=== PATIENT | female | born 1965 | race Caucasian/White ===

== ENCOUNTER 2016-05-29 16:12 | Emergency (ER) | payer BC ==
[~2016-05-29 16:12] MED LIST: MICA40TA; PERC5TAB8; VICO5TAB; ZOLO100T
[2016-05-29 19:08] LABS: CALCIUM OXALATE CRYSTALS SMALL
[2016-05-29 19:52] LABS: BASO # 0.1 K/mm3 (0.0-0.2); BASO % 0.8 % (0.0-1.0); EOS # 0.2 K/mm3 (0.0-0.50); EOS % 2.1 % (0.0-3.0); LARGE UNSTAINED CELL # 0.2 K/mm3 (0.0-0.4); LARGE UNSTAINED CELL % 1.8 % (0.0-4.0); LYMPH # 3.1 K/mm3 (1.5-4.5); MEAN CORPUSCULAR HEMOGLOBIN 32.2 pg (27.0-33.0); MEAN CORPUSCULAR HGB CONC 33.6 g/dl (32.0-36.5); MEAN CORPUSCULAR VOLUME 95.8 fl (80.0-96.0); MONO # 0.4 K/mm3 (0.0-0.8); MONO % 4.8 % (0.0-5.0); NEUTROPHILS # 4.7 K/mm3 (1.8-7.7); NEUTROPHILS % 54.5 % (36.0-66.0); PLATELET COUNT, AUTOMATED 258 k/mm3 (150-450); RED CELL DISTRIBUTION WIDTH 12.8 % (11.5-14.5); WHITE BLOOD COUNT 8.7 K/mm3 (4.0-10.0)
[2016-05-29 20:20] LABS: ALBUMIN 3.9 GM/DL (3.2-5.2); ALBUMIN/GLOBULIN RATIO 1.05 (1.00-1.93); ALKALINE PHOSPHATASE 107 U/L (45-117); ALT/SGPT 25 U/L (12-78); ANION GAP 6 MEQ/L (8-16); AST/SGOT 16 U/L (15-37); BILIRUBIN,DIRECT < 0.1 MG/DL (0.0-0.2); BILIRUBIN,TOTAL 0.3 MG/DL (0.2-1.0); BLOOD UREA NITROGEN 10 MG/DL (7-18); CALCIUM LEVEL 9.1 MG/DL (8.5-10.1); CARBON DIOXIDE LEVEL 32 MEQ/L (21-32); CHLORIDE LEVEL 106 MEQ/L (98-107); CREATININE FOR GFR 0.87 MG/DL (0.55-1.02); GLOMERULAR FILTRATION RATE > 60.0 (>51); GLUCOSE, FASTING 81 MG/DL (70-105); POTASSIUM SERUM 4.2 MEQ/L (3.5-5.1); SODIUM LEVEL 144 MEQ/L (136-145); TOTAL PROTEIN 7.6 GM/DL (6.4-8.2)
[2016-05-29] MEDS ORDERED: ISOVUE-370 76% 100ML VIAL (Q9967) As Ordered ONE (20:36)
--- NOTE | 2016-05-29 21:20 | REPUSA ---
CT of the abdomen and pelvis with contrast Clinical statement: Pain. Technique: Multiple axial CT images were obtained from the base of the lungs through the floor of the pelvis utilizing 5 mm axial slices after administration of oral and nonionic intravenous contrast. C oronal and sagittal reconstructions were also obtained. Comparison: 12/27/2013. Findings: Chest: The visualized lung bases are clear. Abdomen: The liver, spleen, pancreas, kidneys, gallbladder, and adrenal glands are unremarkable. The aorta is within normal limits. There is no evidence of abdominal lymphadenopathy or ascites. Pelvis: The bowel is unremarkable, with no obstructive or inflammatory changes. Mild sigmoid divertic ulosis is appreciated without evidence of diverticulitis. The appendix is normal. The urinary bladder is within normal limits. The other pelvic structures appear grossly intact. There is no evidence of pelvic lymphadenopathy or ascites. Bones: There are no suspicious osseous abnormalities seen. Impression: 1. No acute findings to explain the patient's pain. No significant change since the prior study.
--- NOTE | 2016-05-29 21:42 | EDDOCDS ---
Physician Documentation [facility] Name: Leilani Johns Age: 51 yrs Sex: Female : 1965 Arrival Date: 05/29/2016 Time: 16:12 Bed TR8 Private MD: Beata Junior Disposition: 05/29/16 21:25 Discharged to Home/Self Care. Impression: Right lower quadrant abdominal tenderness. - Condition is Stable. - Discharge Instructions: Abdominal Pain, Adult. - Prescriptions for ZOFRAN ODT 4 mg - dissolve 1 tablet by ORAL route 4 times per day As needed do not chew, do not swallow whole; 10 tablet. - Medication Reconciliation, Local Pharmacy Hours form. - Follow up: Beata Junior, ; When: Call to arrange an appointment; Reason: Recheck today's complaints, Continuance of care. - Problem is new. - Symptoms are unchanged. Historical: - Allergies: no known allergies; - Home Meds: 1. escitalopram oxalate 20 mg oral tab 1 tab once daily 2. aspirin 81 mg Oral chew 1 tab once daily 3. Vitamin C 500 mg Oral TbER daily 4. olmesartan 20 mg oral tab 1 tab once daily 5. sertraline 50 mg oral tab 1 tab once daily - PMHx: Hypertension; High Cholesterol; Depression; - PSHx: Lumpectomy- Right; Tonsillectomy; Hysterectomy; Knee surgery- Right; - Social history: Smoking status: Patient uses tobacco products, heavy tobacco smoker. No barriers to communication noted, The patient speaks fluent Kazakh, Speaks appropriately for age. - Family history: Not pertinent. - : The pt / caregiver states he / she is not on anticoagulants. Home medication list is obtained from the patient. - Exposure Risk Screening:: None identified. Vital Signs: 05/29 16:14 BP 151 / 83; Pulse 91; Resp 18 S; Temp 97.9(O); Pulse Ox 99% on R/A; Weight 89.36 kg / dd6 197.01 lbs (R); Height 5 ft. 0 in. (152.40 cm) (R); 16:14 Body Mass Index 38.47 (89.36 kg, 152.40 cm) dd6 MDM: 18:30 NS 0.9% 1000 ml IV at bolus once ordered. mo1 18:30 IV Saline Lock ordered. mo1 18:30 Undress patient appropriately for examination ordered. mo1 18:31 Basic Metabolic Profile Ordered. EDMS 18:31 CBC with Diff Ordered. EDMS 18:31 Lipase Ordered. EDMS 18:31 Liver Profile Ordered. EDMS 18:31 Urinalysis Ordered. EDMS 18:31 CT ABD & PELVIS: IV Contrast Only Ordered. EDMS 18:31 NOTHING BY MOUTH+DIET ordered. EDMS 19:03 Financial registration complete. zo 19:11 [facility] Payment Agreement was scanned into co[employer]banize and attached to record. zo 19:17 Urinalysis Reviewed. mo1 20:26 Basic Metabolic Profile Reviewed. mo1 20:26 CBC with Diff Reviewed. mo1 20:26 Lipase Reviewed. mo1 20:26 Liver Profile Reviewed. mo1 Administered Medications: 19:50 Drug: NS 0.9% 1000 ml Route: IV; Rate: bolus; Site: left antecubital; [facility] 21:41 Follow up: IV Status: Infusion discontinued; IV Intake: 700ml pml Signatures: Dispatcher MedHost EDVanessa Boone Hannah RN RN hs1 Lynsey Ricks RN RN pml Cristhian Levin PA PA mo1 Kamilla Snowden RN [facility] The chart was reviewed and I authenticate all verbal orders and agree with the evaluation and treatment provided.Attachments: 19:11 [facility] Payment Agreement zo MTDD
--- NOTE | 2016-05-29 21:43 | EDDOCDS ---
Nurse's Notes [facility] Name: Leilani Johns Age: 51 yrs Sex: Female : 1965 Arrival Date: 05/29/2016 Time: 16:12 Bed TR8 Private MD: Beata Junior Diagnosis: Right lower quadrant abdominal tenderness Presentation: 05/29 16:21 Presenting complaint: Patient states: abdominal pain since Sunday. PCP was seen today hs1 and was told by them to come here for further evaluation and CT scan to make sure not appendicitis. Sent here by Dr Junior. Risk factors: the patient reports no vaginal bleeding. Adult Sepsis Screening: The patient does not have new or worsening altered mentation. Patient's respiratory rate is less than 22. Systolic blood pressure is greater than 100. Patient has a qSOFA score of 0- Negative Sepsis Screen. Suicide/Homicide risk assessment- the patient denies having any suicidal and/or homicidal ideations and does not present with any other emotional, behavioral or mental health complaints. Status: Patient is not a environmental services specialist or dependent. Transition of care: patient was not received from another setting of care. 16:21 Acuity: LING Level 3 hs1 16:21 Method Of Arrival: Walkin/Carried/Asstd hs1 Triage Assessment: 16:27 General: Appears in no apparent distress, Behavior is appropriate for age, cooperative. hs1 Pain: Location: abdomen Pain currently is 5 out of 10 on a pain scale. Quality of pain is described as sharp. HIV screening NA for this visit Offered previously. Neurological: No deficits noted. GI: Denies nausea. Historical: - Allergies: no known allergies; - Home Meds: 1. escitalopram oxalate 20 mg oral tab 1 tab once daily 2. aspirin 81 mg Oral chew 1 tab once daily 3. Vitamin C 500 mg Oral TbER daily 4. olmesartan 20 mg oral tab 1 tab once daily 5. sertraline 50 mg oral tab 1 tab once daily - PMHx: Hypertension; High Cholesterol; Depression; - PSHx: Lumpectomy- Right; Tonsillectomy; Hysterectomy; Knee surgery- Right; - Social history: Smoking status: Patient uses tobacco products, heavy tobacco smoker. No barriers to communication noted, The patient speaks fluent Ukrainian, Speaks appropriately for age. - Family history: Not pertinent. - : The pt / caregiver states he / she is not on anticoagulants. Home medication list is obtained from the patient. - Exposure Risk Screening:: None identified. Screenin:51 Screening information is obtained from the patient. Fall risk: No risks identified. [facility] Assistance ADL's: requires no assistance with activities of daily living. Abuse/DV Screen: The patient / caregiver reports he/she is: not in a situation that causes fear, pain or injury. Nutritional screening: No deficits noted. Advance Directives: There is no active DNR order. home support is adequate. Assessment: 19:51 General: Appears in no apparent distress, comfortable, Behavior is appropriate for age, cjh cooperative, pleasant. Pain: Location: right lower quadrant Pain currently is 5 out of 10 on a pain scale. Neurological: Level of Consciousness is awake, alert, Oriented to person, place, time. Respiratory: Airway is patent Respiratory effort is even, unlabored, Respiratory pattern is regular, symmetrical. GI: Abdomen is non- distended Bowel sounds present X 4 quads. Abd is soft X 4 quads Abd is tender to palpation in right lower quadrant. Derm: Skin is pink, warm & dry. 20:53 General: Appears in no apparent distress, Behavior is cooperative, Had CTscan. rs3 tolerated well. abdominal pain 4/10. waiting for test results. . 21:40 General: Appears in no apparent distress, comfortable, Behavior is appropriate for age, pml cooperative. Pain: Location: right lower quadrant Pain currently is 4 out of 10 on a pain scale. Neurological: Level of Consciousness is awake, alert, Oriented to person, place, time. Cardiovascular: Capillary refill < 3 seconds. Respiratory: Airway is patent Respiratory effort is even, unlabored, Respiratory pattern is regular, symmetrical. GI: Abdomen is non- distended. Derm: Skin is pink, warm & dry. Vital Signs: 16:14 BP 151 / 83; Pulse 91; Resp 18 S; Temp 97.9(O); Pulse Ox 99% on R/A; Weight 89.36 kg dd6 (R); Height 5 ft. 0 in. (152.40 cm) (R); 16:14 Body Mass Index 38.47 (89.36 kg, 152.40 cm) dd6 Vitals: 16:14 Log In Time: May 29, 2016 at 16:12. dd6 ED Course: 16:13 Patient visited by Adam Roth PCA. dd6 16:13 Patient moved to Waiting dd6 16:14 Beata Junior DO is Private Physician. dd6 16:15 Patient moved to Pre RCE dd6 16:22 Triage Initiated hs1 17:37 Patient moved to Triage 3 ar3 18:07 Cristhian Levin PA is PHCP. mo1 18:07 Maame Cochran MD is Attending Physician. mo1 18:18 Patient visited by Cristhian Levin PA. mo1 18:35 Patient moved to I4 / M4 ar3 18:35 Urinalysis Sent. ar3 19:11 [facility] Payment Agreement was scanned into Toc[employer] and attached to record. zo 19:22 Patient visited by Liyah Sanders PCA. raquel 19:51 The patient / caregiver is instructed regarding the plan of care and ED course. Patient [facility] has correct armband on for positive identification. Placed in gown. Bed in low position. Call light in reach. Side rails up X 1. 19:51 Inserted saline lock: 20 gauge in right antecubital area and blood collected. The [facility] patient tolerated the procedure well. Labs drawn. (by ED staff). Sent per order to lab. 20:18 Patient visited by Em Abraham RN. rs3 20:53 Patient visited by Em Abraham RN. rs3 21:24 CT ABD & PELVIS: IV Contrast Only Returned. EDMS 21:25 Beata Junior DO is Referral Physician. mo1 21:36 Patient moved to TR8 pml 21:40 Discontinued lock intact, bleeding controlled, pressure dressing applied, No pml redness/swelling at site. No procedures done that require assistance. Administered Medications: 19:50 Drug: NS 0.9% 1000 ml Route: IV; Rate: bolus; Site: left antecubital; [facility] 21:41 Follow up: IV Status: Infusion discontinued; IV Intake: 700ml pml Intake: 21:41 IV: 700.00ml; Total: 700.00ml. pml Order Results: Lab Order: Basic Metabolic Profile; SPEC'M 05/29/16 19:34 Test: GLUCOSE, FASTING; Value: 81; Range: 70-105; Units: MG/DL; Status: F Test: BLOOD UREA NITROGEN; Value: 10; Range: 7-18; Units: MG/DL; Status: F Test: CREATININE FOR GFR; Value: 0.87; Range: 0.55-1.02; Units: MG/DL; Status: F Test: GLOMERULAR FILTRATION RATE; Value: > 60.0; Range: >51; Status: F Test: SODIUM LEVEL; Value: 144; Range: 136-145; Units: MEQ/L; Status: F Test: POTASSIUM SERUM; Value: 4.2; Range: 3.5-5.1; Units: MEQ/L; Status: F Test: CHLORIDE LEVEL; Value: 106; Range: 98-107; Units: MEQ/L; Status: F Test: CARBON DIOXIDE LEVEL; Value: 32; Range: 21-32; Units: MEQ/L; Status: F Test: ANION GAP; Value: 6; Range: 8-16; Abnormal: Below low normal; Units: MEQ/L; Status: F Test: CALCIUM LEVEL; Value: 9.1; Range: 8.5-10.1; Units: MG/DL; Status: F Test Note: ; Units are mL/min/1.73 m2 Chronic Kidney Disease Staging per NKF: Stage I & II GFR >=60 Normal to Mildly Decreased Stage III GFR 30-59 Moderately Decreased Stage IV GFR 15-29 Severely Decreased Stage V GFR <15 Very Little GFR Left ESRD GFR <15 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 Lab Order: CBC with Diff; SPEC'M 05/29/16 19:34 Test: WHITE BLOOD COUNT; Value: 8.7; Range: 4.0-10.0; Units: K/mm3; Status: F Test: RED BLOOD COUNT; Value: 4.48; Range: 4.00-5.40; Units: M/mm3; Status: F Test: HEMOGLOBIN; Value: 14.5; Range: 12.0-16.0; Units: g/dl; Status: F Test: HEMATOCRIT; Value: 43.0; Range: 36.0-47.0; Units: %; Status: F Test: MEAN CORPUSCULAR VOLUME; Value: 95.8; Range: 80.0-96.0; Units: fl; Status: F Test: MEAN CORPUSCULAR HEMOGLOBIN; Value: 32.2; Range: 27.0-33.0; Units: pg; Status: F Test: MEAN CORPUSCULAR HGB CONC; Value: 33.6; Range: 32.0-36.5; Units: g/dl; Status: F Test: RED CELL DISTRIBUTION WIDTH; Value: 12.8; Range: 11.5-14.5; Units: %; Status: F Test: PLATELET COUNT, AUTOMATED; Value: 258; Range: 150-450; Units: k/mm3; Status: F Test: NEUTROPHILS %; Value: 54.5; Range: 36.0-66.0; Units: %; Status: F Test: LYMPH %; Value: 36.0; Range: 24.0-44.0; Units: %; Status: F Test: MONO %; Value: 4.8; Range: 0.0-5.0; Units: %; Status: F Test: EOS %; Value: 2.1; Range: 0.0-3.0; Units: %; Status: F Test: BASO %; Value: 0.8; Range: 0.0-1.0; Units: %; Status: F Test: LARGE UNSTAINED CELL %; Value: 1.8; Range: 0.0-4.0; Units: %; Status: F Test: NEUTROPHILS #; Value: 4.7; Range: 1.8-7.7; Units: K/mm3; Status: F Test: LYMPH #; Value: 3.1; Range: 1.5-4.5; Units: K/mm3; Status: F Test: MONO #; Value: 0.4; Range: 0.0-0.8; Units: K/mm3; Status: F Test: EOS #; Value: 0.2; Range: 0.0-0.50; Units: K/mm3; Status: F Test: BASO #; Value: 0.1; Range: 0.0-0.2; Units: K/mm3; Status: F Test: LARGE UNSTAINED CELL #; Value: 0.2; Range: 0.0-0.4; Units: K/mm3; Status: F Lab Order: Lipase; SPEC'M 05/29/16 19:34 Test: LIPASE; Value: 151; Range: 73-393; Units: U/L; Status: F Lab Order: Liver Profile; SPEC'M 05/29/16 19:34 Test: AST/SGOT; Value: 16; Range: 15-37; Units: U/L; Status: F Test: ALT/SGPT; Value: 25; Range: 12-78; Units: U/L; Status: F Test: ALKALINE PHOSPHATASE; Value: 107; Range: 45-117; Units: U/L; Status: F Test: BILIRUBIN,TOTAL; Value: 0.3; Range: 0.2-1.0; Units: MG/DL; Status: F Test: BILIRUBIN,DIRECT; Value: < 0.1; Range: 0.0-0.2; Units: MG/DL; Status: F Test: TOTAL PROTEIN; Value: 7.6; Range: 6.4-8.2; Units: GM/DL; Status: F Test: ALBUMIN; Value: 3.9; Range: 3.2-5.2; Units: GM/DL; Status: F Test: ALBUMIN/GLOBULIN RATIO; Value: 1.05; Range: 1.00-1.93; Status: F Lab Order: Urinalysis; SPEC'M 05/29/16 18:35 Test: APPEARANCE, URINE; Value: HAZY; Range: CLEAR; Status: F Test: COLOR, URINE; Value: YELLOW; Range: YELLOW; Status: F Test: PH,URINE; Value: 6.0; Range: 5.0-9.0; Units: UNITS; Status: F Test: SPECIFIC GRAVITY URINE AUTO; Value: 1.021; Range: 1.002-1.035; Status: F Test: PROTEIN, URINE AUTO; Value: NEGATIVE; Range: NEGATIVE; Units: mg/dL; Status: F Test: GLUCOSE, URINE (UA) AUTO; Value: NEGATIVE; Range: NEGATIVE; Units: mg/dL; Status: F Test: KETONE, URINE AUTO; Value: NEGATIVE; Range: NEGATIVE; Units: mg/dL; Status: F Test: UROBILINOGEN, URINE AUTO; Value: 0.2; Range: 0.0-2.0; Units: mg/dL; Status: F Test: BILIRUBIN, URINE AUTO; Value: NEGATIVE; Range: NEGATIVE; Status: F Test: NITRITE, URINE AUTO; Value: NEGATIVE; Range: NEGATIVE; Status: F Test: LEUKOCYTE ESTERASE, URINE AUTO; Value: NEGATIVE; Range: NEGATIVE; Status: F Test: BLOOD, URINE BLOOD; Value: NEGATIVE; Range: NEGATIVE; Status: F Test: WBC, URINE AUTO; Value: 2; Range: 0-3; Units: /HPF; Status: F Test: RBC, URINE AUTO; Value: 2; Range: 0-3; Units: /HPF; Status: F Test: BACTERIA, URINE AUTO; Value: 1+; Range: NEGATIVE; Abnormal: Above high normal; Status: F Test: SQUAMOUS EPITHELIAL CELL UR AU; Value: 5; Range: 0-6; Units: /HPF; Status: F Test: MUCUS, URINE; Value: SMALL; Range: NEGATIVE; Status: F Test: HYALINE CAST, URINE AUTO; Value: 0; Range: 0-1; Units: /LPF; Status: F Test: CALCIUM OXALATE CRYSTALS; Value: SMALL; Range: NONE; Status: F Radiology Order: CT ABD & PELVIS: IV Contrast Only Test: CT ABD & PELVIS: IV Contrast Only REASON FOR EXAMINATION: Appendicitis; ; CT of the abdomen and pelvis with contrast; Clinical statement: Pain.; Technique: Multiple axial CT images were obtained from the base of the lungs through the floor of the; pelvis utilizing 5 mm axial slices after administration of oral and nonionic intravenous contrast. C; oronal and sagittal reconstructions were also obtained.; Comparison: 12/27/2013.; Findings:; Chest: The visualized lung bases are clear.; Abdomen: The liver, spleen, pancreas, kidneys, gallbladder, and adrenal glands are unremarkable. The; aorta is within normal limits. There is no evidence of abdominal lymphadenopathy or ascites.; Pelvis: The bowel is unremarkable, with no obstructive or inflammatory changes. Mild sigmoid divertic; ulosis is appreciated without evidence of diverticulitis. The appendix is normal. The urinary bladder; is within normal limits. The other pelvic structures appear grossly intact. There is no evidence of; pelvic lymphadenopathy or ascites.; Bones: There are no suspicious osseous abnormalities seen.; Impression:; 1. No acute findings to explain the patient's pain. No significant change since the prior study.; ; Outcome: 21:25 Discharge ordered by Provider. mo1 21:40 Discharge Assessment: Patient awake, alert and oriented x 3. No cognitive and/or pml functional deficits noted. Patient verbalized understanding of disposition instructions. patient administered narcotics - no. The following High Risk Discharge criteria are identified: None. Discharged to home ambulatory. Condition: good Condition: stable. Discharge instructions given to patient, Instructed on discharge instructions, follow up and referral plans. medication usage, Demonstrated understanding of instructions, medications, Pt was receptive of discharge instructions/ teaching. Prescriptions given X 1. CT Study completed. Property sent home with patient. 21:42 Patient left the ED. pml Signatures: Dispatcher MedHost EDMS Vanessa Velez Daniell, POLISHER APPRENTICE POLISHER APPRENTICE dd6 Em AbrahamRN RN rs3 Joan Rouse, POLISHER APPRENTICE POLISHER APPRENTICE ar3 Mercy Quiñonez RN RN hs1 Liyah Sanders, POLISHER APPRENTICE POLISHER APPRENTICE raquel Lynsey RicksRN RN pml Kamilla SnowdenRN RN [facility] Cristhian Levin PA PA mo1 RAYNA
--- NOTE | 2016-05-31 22:42 | EDDOCDS ---
Physician Documentation [facility] Name: Leilani Johns Age: 51 yrs Sex: Female : 1965 Arrival Date: 05/29/2016 Time: 16:12 Bed TR8 Private MD: Beata Junior Disposition: 05/29/16 21:25 Discharged to Home/Self Care. Impression: Right lower quadrant abdominal tenderness. - Condition is Stable. - Discharge Instructions: Abdominal Pain, Adult. - Prescriptions for ZOFRAN ODT 4 mg - dissolve 1 tablet by ORAL route 4 times per day As needed do not chew, do not swallow whole; 10 tablet. - Medication Reconciliation, Local Pharmacy Hours form. - Follow up: Beata Junior, ; When: Call to arrange an appointment; Reason: Recheck today's complaints, Continuance of care. - Problem is new. - Symptoms are unchanged. Historical: - Allergies: no known allergies; - Home Meds: 1. escitalopram oxalate 20 mg oral tab 1 tab once daily 2. aspirin 81 mg Oral chew 1 tab once daily 3. Vitamin C 500 mg Oral TbER daily 4. olmesartan 20 mg oral tab 1 tab once daily 5. sertraline 50 mg oral tab 1 tab once daily - PMHx: Hypertension; High Cholesterol; Depression; - PSHx: Lumpectomy- Right; Tonsillectomy; Hysterectomy; Knee surgery- Right; - Social history: Smoking status: Patient uses tobacco products, heavy tobacco smoker. No barriers to communication noted, The patient speaks fluent Yoruba, Speaks appropriately for age. - Family history: Not pertinent. - : The pt / caregiver states he / she is not on anticoagulants. Home medication list is obtained from the patient. - Exposure Risk Screening:: None identified. Vital Signs: 05/29 16:14 BP 151 / 83; Pulse 91; Resp 18 S; Temp 97.9(O); Pulse Ox 99% on R/A; Weight 89.36 kg / dd6 197.01 lbs (R); Height 5 ft. 0 in. (152.40 cm) (R); 16:14 Body Mass Index 38.47 (89.36 kg, 152.40 cm) dd6 MDM: 18:30 NS 0.9% 1000 ml IV at bolus once ordered. mo1 18:30 IV Saline Lock ordered. mo1 18:30 Undress patient appropriately for examination ordered. mo1 18:31 Basic Metabolic Profile Ordered. EDMS 18:31 CBC with Diff Ordered. EDMS 18:31 Lipase Ordered. EDMS 18:31 Liver Profile Ordered. EDMS 18:31 Urinalysis Ordered. EDMS 18:31 CT ABD & PELVIS: IV Contrast Only Ordered. EDMS 18:31 NOTHING BY MOUTH+DIET ordered. EDMS 19:03 Financial registration complete. zo 19:11 [facility] Payment Agreement was scanned into [employer] and attached to record. zo 19:17 Urinalysis Reviewed. mo1 20:26 Basic Metabolic Profile Reviewed. mo1 20:26 CBC with Diff Reviewed. mo1 20:26 Lipase Reviewed. mo1 20:26 Liver Profile Reviewed. mo1 05/30 12:56 T-Sheet-- Draft Copy was scanned into Veve[employer] and attached to record. gb 12:56 Radiology Report was scanned into Veve[employer] and attached to record. gb Administered Medications: 05/29 19:50 Drug: NS 0.9% 1000 ml Route: IV; Rate: bolus; Site: left antecubital; [facility] 21:41 Follow up: IV Status: Infusion discontinued; IV Intake: 700ml pml Signatures: Dispatcher MedHost EDKY Jamila Savage, Rai Reg gb Vanessa Velez zo Mercy Quiñonez, WHITLEY RN hs1 Lynsey Ricks RN RN pml Cristhian Levin PA PA mo1 Kamilla Snowden RN [facility] The chart was reviewed and I authenticate all verbal orders and agree with the evaluation and treatment provided.Attachments: 19:11 [facility] Payment Agreement zo 05/30 12:56 T-Sheet-- Draft Copy gb Chart Complete MTDD
--- NOTE | 2016-05-31 22:42 | EDDOCDS ---
Physician Documentation [facility] Name: Leilani Johns Age: 51 yrs Sex: Female : 1965 Arrival Date: 05/29/2016 Time: 16:12 Bed TR8 Private MD: Beata Junior Disposition: 05/29/16 21:25 Discharged to Home/Self Care. Impression: Right lower quadrant abdominal tenderness. - Condition is Stable. - Discharge Instructions: Abdominal Pain, Adult. - Prescriptions for ZOFRAN ODT 4 mg - dissolve 1 tablet by ORAL route 4 times per day As needed do not chew, do not swallow whole; 10 tablet. - Medication Reconciliation, Local Pharmacy Hours form. - Follow up: Beata Junior, ; When: Call to arrange an appointment; Reason: Recheck today's complaints, Continuance of care. - Problem is new. - Symptoms are unchanged. Historical: - Allergies: no known allergies; - Home Meds: 1. escitalopram oxalate 20 mg oral tab 1 tab once daily 2. aspirin 81 mg Oral chew 1 tab once daily 3. Vitamin C 500 mg Oral TbER daily 4. olmesartan 20 mg oral tab 1 tab once daily 5. sertraline 50 mg oral tab 1 tab once daily - PMHx: Hypertension; High Cholesterol; Depression; - PSHx: Lumpectomy- Right; Tonsillectomy; Hysterectomy; Knee surgery- Right; - Social history: Smoking status: Patient uses tobacco products, heavy tobacco smoker. No barriers to communication noted, The patient speaks fluent Vietnamese, Speaks appropriately for age. - Family history: Not pertinent. - : The pt / caregiver states he / she is not on anticoagulants. Home medication list is obtained from the patient. - Exposure Risk Screening:: None identified. Vital Signs: 05/29 16:14 BP 151 / 83; Pulse 91; Resp 18 S; Temp 97.9(O); Pulse Ox 99% on R/A; Weight 89.36 kg / dd6 197.01 lbs (R); Height 5 ft. 0 in. (152.40 cm) (R); 16:14 Body Mass Index 38.47 (89.36 kg, 152.40 cm) dd6 MDM: 18:30 NS 0.9% 1000 ml IV at bolus once ordered. mo1 18:30 IV Saline Lock ordered. mo1 18:30 Undress patient appropriately for examination ordered. mo1 18:31 Basic Metabolic Profile Ordered. EDMS 18:31 CBC with Diff Ordered. EDMS 18:31 Lipase Ordered. EDMS 18:31 Liver Profile Ordered. EDMS 18:31 Urinalysis Ordered. EDMS 18:31 CT ABD & PELVIS: IV Contrast Only Ordered. EDMS 18:31 NOTHING BY MOUTH+DIET ordered. EDMS 19:03 Financial registration complete. zo 19:11 [facility] Payment Agreement was scanned into [employer] and attached to record. zo 19:17 Urinalysis Reviewed. mo1 20:26 Basic Metabolic Profile Reviewed. mo1 20:26 CBC with Diff Reviewed. mo1 20:26 Lipase Reviewed. mo1 20:26 Liver Profile Reviewed. mo1 05/30 12:56 T-Sheet-- Draft Copy was scanned into [employer] and attached to record. gb 12:56 Radiology Report was scanned into [employer] and attached to record. gb Administered Medications: 05/29 19:50 Drug: NS 0.9% 1000 ml Route: IV; Rate: bolus; Site: left antecubital; [facility] 21:41 Follow up: IV Status: Infusion discontinued; IV Intake: 700ml pml Signatures: Dispatcher MedHost EDKS Jamila Savage, Rai Reg gb Vanessa Velez zo Mercy Quiñonez, WHITLEY RN hs1 Lynsey Ricks RN RN pml Cristhian Levin PA PA mo1 Kamilla Snowden RN [facility] The chart was reviewed and I authenticate all verbal orders and agree with the evaluation and treatment provided.Attachments: 19:11 [facility] Payment Agreement zo 05/30 12:56 T-Sheet-- Draft Copy gb Chart Complete MTDD
--- NOTE | 2016-05-31 22:43 | EDDOCDS ---
Nurse's Notes [facility] Name: Leilani Johns Age: 51 yrs Sex: Female : 1965 Arrival Date: 05/29/2016 Time: 16:12 Bed TR8 Private MD: Beata Junior Diagnosis: Right lower quadrant abdominal tenderness Presentation: 05/29 16:21 Presenting complaint: Patient states: abdominal pain since Sunday. PCP was seen today hs1 and was told by them to come here for further evaluation and CT scan to make sure not appendicitis. Sent here by Dr Junior. Risk factors: the patient reports no vaginal bleeding. Adult Sepsis Screening: The patient does not have new or worsening altered mentation. Patient's respiratory rate is less than 22. Systolic blood pressure is greater than 100. Patient has a qSOFA score of 0- Negative Sepsis Screen. Suicide/Homicide risk assessment- the patient denies having any suicidal and/or homicidal ideations and does not present with any other emotional, behavioral or mental health complaints. Status: Patient is not a guest services lead or dependent. Transition of care: patient was not received from another setting of care. 16:21 Acuity: LING Level 3 hs1 16:21 Method Of Arrival: Walkin/Carried/Asstd hs1 Triage Assessment: 16:27 General: Appears in no apparent distress, Behavior is appropriate for age, cooperative. hs1 Pain: Location: abdomen Pain currently is 5 out of 10 on a pain scale. Quality of pain is described as sharp. HIV screening NA for this visit Offered previously. Neurological: No deficits noted. GI: Denies nausea. Historical: - Allergies: no known allergies; - Home Meds: 1. escitalopram oxalate 20 mg oral tab 1 tab once daily 2. aspirin 81 mg Oral chew 1 tab once daily 3. Vitamin C 500 mg Oral TbER daily 4. olmesartan 20 mg oral tab 1 tab once daily 5. sertraline 50 mg oral tab 1 tab once daily - PMHx: Hypertension; High Cholesterol; Depression; - PSHx: Lumpectomy- Right; Tonsillectomy; Hysterectomy; Knee surgery- Right; - Social history: Smoking status: Patient uses tobacco products, heavy tobacco smoker. No barriers to communication noted, The patient speaks fluent Montserratian, Speaks appropriately for age. - Family history: Not pertinent. - : The pt / caregiver states he / she is not on anticoagulants. Home medication list is obtained from the patient. - Exposure Risk Screening:: None identified. Screenin:51 Screening information is obtained from the patient. Fall risk: No risks identified. [facility] Assistance ADL's: requires no assistance with activities of daily living. Abuse/DV Screen: The patient / caregiver reports he/she is: not in a situation that causes fear, pain or injury. Nutritional screening: No deficits noted. Advance Directives: There is no active DNR order. home support is adequate. Assessment: 19:51 General: Appears in no apparent distress, comfortable, Behavior is appropriate for age, cjh cooperative, pleasant. Pain: Location: right lower quadrant Pain currently is 5 out of 10 on a pain scale. Neurological: Level of Consciousness is awake, alert, Oriented to person, place, time. Respiratory: Airway is patent Respiratory effort is even, unlabored, Respiratory pattern is regular, symmetrical. GI: Abdomen is non- distended Bowel sounds present X 4 quads. Abd is soft X 4 quads Abd is tender to palpation in right lower quadrant. Derm: Skin is pink, warm & dry. 20:53 General: Appears in no apparent distress, Behavior is cooperative, Had CTscan. rs3 tolerated well. abdominal pain 4/10. waiting for test results. . 21:40 General: Appears in no apparent distress, comfortable, Behavior is appropriate for age, pml cooperative. Pain: Location: right lower quadrant Pain currently is 4 out of 10 on a pain scale. Neurological: Level of Consciousness is awake, alert, Oriented to person, place, time. Cardiovascular: Capillary refill < 3 seconds. Respiratory: Airway is patent Respiratory effort is even, unlabored, Respiratory pattern is regular, symmetrical. GI: Abdomen is non- distended. Derm: Skin is pink, warm & dry. Vital Signs: 16:14 BP 151 / 83; Pulse 91; Resp 18 S; Temp 97.9(O); Pulse Ox 99% on R/A; Weight 89.36 kg dd6 (R); Height 5 ft. 0 in. (152.40 cm) (R); 16:14 Body Mass Index 38.47 (89.36 kg, 152.40 cm) dd6 Vitals: 16:14 Log In Time: May 29, 2016 at 16:12. dd6 ED Course: 16:13 Patient visited by Adam Roth PCA. dd6 16:13 Patient moved to Waiting dd6 16:14 Beata Junior DO is Private Physician. dd6 16:15 Patient moved to Pre RCE dd6 16:22 Triage Initiated hs1 17:37 Patient moved to Triage 3 ar3 18:07 Cristhian Levin PA is PHCP. mo1 18:07 Maame Cochran MD is Attending Physician. mo1 18:18 Patient visited by Cristhian Levin PA. mo1 18:35 Patient moved to I4 / M4 ar3 18:35 Urinalysis Sent. ar3 19:11 [facility] Payment Agreement was scanned into [employer] and attached to record. zo 19:22 Patient visited by Liyah Sanders PCA. raquel 19:51 The patient / caregiver is instructed regarding the plan of care and ED course. Patient [facility] has correct armband on for positive identification. Placed in gown. Bed in low position. Call light in reach. Side rails up X 1. 19:51 Inserted saline lock: 20 gauge in right antecubital area and blood collected. The [facility] patient tolerated the procedure well. Labs drawn. (by ED staff). Sent per order to lab. 20:18 Patient visited by Em Abraham RN. rs3 20:53 Patient visited by Em Abraham,WHITLEY. rs3 21:24 CT ABD & PELVIS: IV Contrast Only Returned. EDMS 21:25 Beata Juinor DO is Referral Physician. mo1 21:36 Patient moved to TR8 pml 21:40 Discontinued lock intact, bleeding controlled, pressure dressing applied, No pml redness/swelling at site. No procedures done that require assistance. 05/30 12:56 T-Sheet-- Draft Copy was scanned into [employer] and attached to record. gb 12:56 Radiology Report was scanned into [employer] and attached to record. gb Administered Medications: 05/29 19:50 Drug: NS 0.9% 1000 ml Route: IV; Rate: bolus; Site: left antecubital; [facility] 21:41 Follow up: IV Status: Infusion discontinued; IV Intake: 700ml pml Intake: 21:41 IV: 700.00ml; Total: 700.00ml. pml Order Results: Lab Order: Basic Metabolic Profile; SPEC'M 05/29/16 19:34 Test: GLUCOSE, FASTING; Value: 81; Range: 70-105; Units: MG/DL; Status: F Test: BLOOD UREA NITROGEN; Value: 10; Range: 7-18; Units: MG/DL; Status: F Test: CREATININE FOR GFR; Value: 0.87; Range: 0.55-1.02; Units: MG/DL; Status: F Test: GLOMERULAR FILTRATION RATE; Value: > 60.0; Range: >51; Status: F Test: SODIUM LEVEL; Value: 144; Range: 136-145; Units: MEQ/L; Status: F Test: POTASSIUM SERUM; Value: 4.2; Range: 3.5-5.1; Units: MEQ/L; Status: F Test: CHLORIDE LEVEL; Value: 106; Range: 98-107; Units: MEQ/L; Status: F Test: CARBON DIOXIDE LEVEL; Value: 32; Range: 21-32; Units: MEQ/L; Status: F Test: ANION GAP; Value: 6; Range: 8-16; Abnormal: Below low normal; Units: MEQ/L; Status: F Test: CALCIUM LEVEL; Value: 9.1; Range: 8.5-10.1; Units: MG/DL; Status: F Test Note: ; Units are mL/min/1.73 m2 Chronic Kidney Disease Staging per NKF: Stage I & II GFR >=60 Normal to Mildly Decreased Stage III GFR 30-59 Moderately Decreased Stage IV GFR 15-29 Severely Decreased Stage V GFR <15 Very Little GFR Left ESRD GFR <15 on [facility] Lab Order: CBC with Diff; SPEC'M 05/29/16 19:34 Test: WHITE BLOOD COUNT; Value: 8.7; Range: 4.0-10.0; Units: K/mm3; Status: F Test: RED BLOOD COUNT; Value: 4.48; Range: 4.00-5.40; Units: M/mm3; Status: F Test: HEMOGLOBIN; Value: 14.5; Range: 12.0-16.0; Units: g/dl; Status: F Test: HEMATOCRIT; Value: 43.0; Range: 36.0-47.0; Units: %; Status: F Test: MEAN CORPUSCULAR VOLUME; Value: 95.8; Range: 80.0-96.0; Units: fl; Status: F Test: MEAN CORPUSCULAR HEMOGLOBIN; Value: 32.2; Range: 27.0-33.0; Units: pg; Status: F Test: MEAN CORPUSCULAR HGB CONC; Value: 33.6; Range: 32.0-36.5; Units: g/dl; Status: F Test: RED CELL DISTRIBUTION WIDTH; Value: 12.8; Range: 11.5-14.5; Units: %; Status: F Test: PLATELET COUNT, AUTOMATED; Value: 258; Range: 150-450; Units: k/mm3; Status: F Test: NEUTROPHILS %; Value: 54.5; Range: 36.0-66.0; Units: %; Status: F Test: LYMPH %; Value: 36.0; Range: 24.0-44.0; Units: %; Status: F Test: MONO %; Value: 4.8; Range: 0.0-5.0; Units: %; Status: F Test: EOS %; Value: 2.1; Range: 0.0-3.0; Units: %; Status: F Test: BASO %; Value: 0.8; Range: 0.0-1.0; Units: %; Status: F Test: LARGE UNSTAINED CELL %; Value: 1.8; Range: 0.0-4.0; Units: %; Status: F Test: NEUTROPHILS #; Value: 4.7; Range: 1.8-7.7; Units: K/mm3; Status: F Test: LYMPH #; Value: 3.1; Range: 1.5-4.5; Units: K/mm3; Status: F Test: MONO #; Value: 0.4; Range: 0.0-0.8; Units: K/mm3; Status: F Test: EOS #; Value: 0.2; Range: 0.0-0.50; Units: K/mm3; Status: F Test: BASO #; Value: 0.1; Range: 0.0-0.2; Units: K/mm3; Status: F Test: LARGE UNSTAINED CELL #; Value: 0.2; Range: 0.0-0.4; Units: K/mm3; Status: F Lab Order: Lipase; [facility] 05/29/16 19:34 Test: LIPASE; Value: 151; Range: 73-393; Units: U/L; Status: F Lab Order: Liver Profile; [facility] 05/29/16 19:34 Test: AST/SGOT; Value: 16; Range: 15-37; Units: U/L; Status: F Test: ALT/SGPT; Value: 25; Range: 12-78; Units: U/L; Status: F Test: ALKALINE PHOSPHATASE; Value: 107; Range: 45-117; Units: U/L; Status: F Test: BILIRUBIN,TOTAL; Value: 0.3; Range: 0.2-1.0; Units: MG/DL; Status: F Test: BILIRUBIN,DIRECT; Value: < 0.1; Range: 0.0-0.2; Units: MG/DL; Status: F Test: TOTAL PROTEIN; Value: 7.6; Range: 6.4-8.2; Units: GM/DL; Status: F Test: ALBUMIN; Value: 3.9; Range: 3.2-5.2; Units: GM/DL; Status: F Test: ALBUMIN/GLOBULIN RATIO; Value: 1.05; Range: 1.00-1.93; Status: F Lab Order: Urinalysis; [facility] 05/29/16 18:35 Test: APPEARANCE, URINE; Value: HAZY; Range: CLEAR; Status: F Test: COLOR, URINE; Value: YELLOW; Range: YELLOW; Status: F Test: PH,URINE; Value: 6.0; Range: 5.0-9.0; Units: UNITS; Status: F Test: SPECIFIC GRAVITY URINE AUTO; Value: 1.021; Range: 1.002-1.035; Status: F Test: PROTEIN, URINE AUTO; Value: NEGATIVE; Range: NEGATIVE; Units: mg/dL; Status: F Test: GLUCOSE, URINE (UA) AUTO; Value: NEGATIVE; Range: NEGATIVE; Units: mg/dL; Status: F Test: KETONE, URINE AUTO; Value: NEGATIVE; Range: NEGATIVE; Units: mg/dL; Status: F Test: UROBILINOGEN, URINE AUTO; Value: 0.2; Range: 0.0-2.0; Units: mg/dL; Status: F Test: BILIRUBIN, URINE AUTO; Value: NEGATIVE; Range: NEGATIVE; Status: F Test: NITRITE, URINE AUTO; Value: NEGATIVE; Range: NEGATIVE; Status: F Test: LEUKOCYTE ESTERASE, URINE AUTO; Value: NEGATIVE; Range: NEGATIVE; Status: F Test: BLOOD, URINE BLOOD; Value: NEGATIVE; Range: NEGATIVE; Status: F Test: WBC, URINE AUTO; Value: 2; Range: 0-3; Units: /HPF; Status: F Test: RBC, URINE AUTO; Value: 2; Range: 0-3; Units: /HPF; Status: F Test: BACTERIA, URINE AUTO; Value: 1+; Range: NEGATIVE; Abnormal: Above high normal; Status: F Test: SQUAMOUS EPITHELIAL CELL UR AU; Value: 5; Range: 0-6; Units: /HPF; Status: F Test: MUCUS, URINE; Value: SMALL; Range: NEGATIVE; Status: F Test: HYALINE CAST, URINE AUTO; Value: 0; Range: 0-1; Units: /LPF; Status: F Test: CALCIUM OXALATE CRYSTALS; Value: SMALL; Range: NONE; Status: F Radiology Order: CT ABD & PELVIS: IV Contrast Only Test: CT ABD & PELVIS: IV Contrast Only REASON FOR EXAMINATION: Appendicitis; ; CT of the abdomen and pelvis with contrast; Clinical statement: Pain.; Technique: Multiple axial CT images were obtained from the base of the lungs through the floor of the; pelvis utilizing 5 mm axial slices after administration of oral and nonionic intravenous contrast. C; oronal and sagittal reconstructions were also obtained.; Comparison: 12/27/2013.; Findings:; Chest: The visualized lung bases are clear.; Abdomen: The liver, spleen, pancreas, kidneys, gallbladder, and adrenal glands are unremarkable. The; aorta is within normal limits. There is no evidence of abdominal lymphadenopathy or ascites.; Pelvis: The bowel is unremarkable, with no obstructive or inflammatory changes. Mild sigmoid divertic; ulosis is appreciated without evidence of diverticulitis. The appendix is normal. The urinary bladder; is within normal limits. The other pelvic structures appear grossly intact. There is no evidence of; pelvic lymphadenopathy or ascites.; Bones: There are no suspicious osseous abnormalities seen.; Impression:; 1. No acute findings to explain the patient's pain. No significant change since the prior study.; ; Outcome: 21:25 Discharge ordered by Provider. mo1 21:40 Discharge Assessment: Patient awake, alert and oriented x 3. No cognitive and/or pml functional deficits noted. Patient verbalized understanding of disposition instructions. patient administered narcotics - no. The following High Risk Discharge criteria are identified: None. Discharged to home ambulatory. Condition: good Condition: stable. Discharge instructions given to patient, Instructed on discharge instructions, follow up and referral plans. medication usage, Demonstrated understanding of instructions, medications, Pt was receptive of discharge instructions/ teaching. Prescriptions given X 1. CT Study completed. Property sent home with patient. 21:42 Patient left the ED. pml Signatures: Dispatcher [employer] EDMS Jamila Savage, Rai Reg Vanessa Becker Daniell, HARPOON ENGAGEMENT PLANNING OPERATOR HARPOON ENGAGEMENT PLANNING OPERATOR dd6 Em Abraham,RN RN rs3 Joan Rouse, HARPOON ENGAGEMENT PLANNING OPERATOR HAR[employer] ENGAGEMENT PLANNING OPERATOR ar3 Mercy Quiñonez RN RN hs1 Liyah Sanders, HARPOON ENGAGEMENT PLANNING OPERATOR HARPOON ENGAGEMENT PLANNING OPERATOR raquel Lynsey Ricks RN RN pml Kamilla Snowden RN RN jeaneth Cristhian Levin PA PA mo1 Chart Complete RAYNA
== END 2016-05-29 21:42 | disposition home or self-care (01) ==
LOC: M ED 16:12
DX: R10.31 Right lower quadrant pain (principal); I10 Essential (primary) hypertension; E78.00 Pure hypercholesterolemia, unspecified; F32.9 Major depressive disorder, single episode, unspecified; Z90.79 Acquired absence of other genital organ(s); F17.200 Nicotine dependence, unspecified, uncomplicated; Z79.82 Long term (current) use of aspirin; Z79.899 Other long term (current) drug therapy
CPT/HCPCS: 36415; 74177; 80048; 80076; 81001; 83690; 85025; 96360; 96361; 99284; Q9967

== ENCOUNTER → 2016-10-15 | Outpatient (REF) | payer BC | LOC: M LAB REF 09:13 | PROVIDERS: ATTEND Physician Assistant | DX: L03.115 Cellulitis of right lower limb (principal) ==

== ENCOUNTER → 2017-05-09 | Outpatient (REF) | payer BC ==
[2017-05-09 20:27] LABS: VITAMIN B12 LEVEL 395 PG/ML (247-911)
== END ==
LOC: M LAB REF 16:34
DX: R53.83 Other fatigue (principal)
CPT/HCPCS: 82607

== ENCOUNTER → 2017-10-02 | Outpatient (CLI) | payer BC | LOC: M LRY 15:27 | DX: M25.562 Pain in left knee (principal) ==

== ENCOUNTER → 2017-10-20 | Outpatient (CLI) | payer BC ==
[2017-10-20 19:19] LABS: BASO # 0.1 10^3/uL (0.0-0.2); BASO % 0.6 % (0.0-1.0); EOS # 0.3 10^3/uL (0.0-0.50); EOS % 3.1 % (0.0-3.0); HEMATOCRIT 45.7 % (36.0-47.0); HEMOGLOBIN 14.4 g/dl (12.0-15.5); IMMATURE GRANULOCYTE % 0.2 % (0-3.0); LYMPH # 2.3 10^3/uL (1.5-4.5); LYMPH % 26.7 % (24.0-44.0); MEAN CORPUSCULAR HEMOGLOBIN 32.6 pg (27.0-33.0); MEAN CORPUSCULAR HGB CONC 31.5 g/dl (32.0-36.5); MEAN CORPUSCULAR VOLUME 103.4 fl (80.0-96.0); MONO # 0.7 10^3/uL (0.0-0.8); MONO % 8.2 % (0.0-5.0); NEUTROPHILS # 5.4 10^3/uL (1.8-7.7); NEUTROPHILS % 61.2 % (36.0-66.0); PLATELET COUNT, AUTOMATED 293 10^3/uL (150-450); RED BLOOD COUNT 4.42 10^6/uL (4.00-5.40); RED CELL DISTRIBUTION WIDTH 14.2 % (11.5-14.5); WHITE BLOOD COUNT 8.8 10^3/uL (4.0-10.0)
[2017-10-20 19:55] LABS: ERYTHROCYTE SEDIMENTATION RATE 14 mm/hr (0-30)
[2017-10-24 00:06] LABS: Lyme Disease IgG/IgM Antibodie <0.91 ISR (0.00-0.90); Lyme Disease IgM Ab Quantitati <0.80 index (0.00-0.79)
== END ==
LOC: M WUC 08:43
DX: M25.462 Effusion, left knee (principal)

== ENCOUNTER 2018-01-28 07:22 | Day surgery (SDC) | payer BC ==
[~2018-01-28 07:22] MED LIST changes: +BUPIVACAINE HCL 0.5% 30 ML VIAL As Ordered; +LR 1,000 ML IV; -MICA40TA; -PERC5TAB8; -VICO5TAB; -ZOLO100T
[2018-01-28] MEDS ORDERED: LIDOCAINE 2% INJ 100 MG/5 ML SDV (FOR ANES.) As Ordered (08:09)
[2018-01-28] MEDS ORDERED: fentaNYL 100 MCG/2 ML INJECTION (J3010) As Ordered (08:09)
[2018-01-28] MEDS ORDERED: PROPOFOL 200 MG/20 ML VIAL As Ordered (08:09)
[2018-01-28] MEDS ORDERED: ONDANSETRON 4MG/2ML VIAL (J2405) As Ordered (08:09)
[2018-01-28] MEDS ORDERED: MIDAZOLAM INJ 2 MG/2 ML VIAL (J2250) As Ordered (08:09)
[2018-01-28] MEDS ORDERED: METOCLOPRAMIDE INJ 10MG/2ML VIAL (J2765) As Ordered (08:09)
[2018-01-28] MEDS ORDERED: KETOROLAC 60 MG/2 ML VIAL (J1885) As Ordered (10:17)
[2018-01-28] MEDS: PERCOCET 5MG/325MG TAB PO ×2 (10:58→12:28)
[2018-01-28] MEDS ORDERED: LR 1,000 ML IV ×2 (11:00)
[2018-01-28] MEDS ORDERED: fentaNYL 100 MCG/2 ML INJECTION (J3010) IV (11:00)
[2018-01-28] MEDS ORDERED: ONDANSETRON 4MG/2ML VIAL (J2405) IV (11:00)
[2018-01-28] MEDS ORDERED: PERCOCET 5MG/325MG TAB As Ordered (12:22)
== END 2018-01-28 13:30 | disposition home or self-care (01) ==
LOC: M SDC 07:22
DX: M23.222 Derangement of posterior horn of medial meniscus due to old tear or injury, left knee (principal); M17.12 Unilateral primary osteoarthritis, left knee; M84.362A Stress fracture, left tibia, initial encounter for fracture; M84.352A Stress fracture, left femur, initial encounter for fracture; E03.9 Hypothyroidism, unspecified; I10 Essential (primary) hypertension; E78.00 Pure hypercholesterolemia, unspecified; K21.9 Gastro-esophageal reflux disease without esophagitis; F41.9 Anxiety disorder, unspecified; T88.59XD Other complications of anesthesia, subsequent encounter; R06.83 Snoring; E66.9 Obesity, unspecified; Z68.36 Body mass index [BMI] 36.0-36.9, adult; Z72.0 Tobacco use; Z90.710 Acquired absence of both cervix and uterus; X58.XXXA Exposure to other specified factors, initial encounter; Y93.89 Activity, other specified; Y92.89 Other specified places as the place of occurrence of the external cause; Y99.8 Other external cause status
CPT/HCPCS: 29881

== ENCOUNTER → 2018-03-19 | Outpatient (REF) | payer BC | LOC: M LAB REF 11:24 | DX: R30.0 Dysuria (principal) | CPT/HCPCS: 87086 ==

== ENCOUNTER → 2019-09-02 | Outpatient (CLI) | payer BC ==
[~2019-09-02] MED LIST changes: +AMLO2.5T3 PO; +ASPI81TA26 PO; +ATOR40TA75 PO; -BUPIVACAINE HCL 0.5% 30 ML VIAL As Ordered; +CITA20TA6 PO; +FERR32TA PO; -LR 1,000 ML IV; +MICA40TA; +OLME40TA PO; +OMEP40CA97 PO; +PERC5TAB8; +VICO5TAB; +ZOLO100T
== END ==
LOC: M LABSMTC 10:26
PROVIDERS: ATTEND Anesthesiology
DX: Z01.818 Encounter for other preprocedural examination (principal); Z11.59 Encounter for screening for other viral diseases

== ENCOUNTER 2019-09-03 08:00 | Day surgery (SDC) | payer BC ==
[~2019-09-03] VITALS: Ht 152.4 cm; Wt 85.3 kg
[~2019-09-03 08:00] MED LIST changes: +LIDOCAINE 2% 100MG/5ML SDV (FOR ANES.) As Ordered ONE; +NS 1,000 ML IV ONE; +propofoL 500 MG/50 ML VIAL As Ordered ONE
[2019-09-03] MEDS ORDERED: fentaNYL 100 MCG/2 ML INJECTION (J3010) As Ordered ONE (09:18)
[2019-09-03] MEDS ORDERED: PHENYLephrine HCL 500 MCG/5 ML (100MCG/ML) SYRINGE (J2370) As Ordered ONE (09:33)
--- NOTE | 2019-09-03 09:34 | ROOR ---
Patient Name: Leilani Johns Procedure Date: 09/03/2019 9:17 AM Date of : 1965 Age: 54 Room: [facility] Gender: Female Note Status: Finalized Procedure: Upper Endoscopy + Biopsies Indications: Heartburn, Exclusion of Taylor's esophagus Providers: Shiva Cruz MD Referring MD: Beata Junior DO Requesting Provider: Medicines: Monitored Anesthesia Care Complications: No immediate complications. Procedure: Pre-Anesthesia Assessment: - The heart rate, respiratory rate, oxygen saturations, blood pressure, adequacy of pulmonary ventilation, and response to care were monitored throughout the procedure. The Endoscope was introduced through the mouth, and advanced to the second part of duodenum. The upper GI endoscopy was accomplished without difficulty. The patient tolerated the procedure well. Findings: The Z-line was irregular and was found 35 cm from the incisors. Multiple biopsies were obtained with cold forceps for evaluation to rule out Taylor's Esophagus randomly at the gastroesophageal junction. A small hiatal hernia was present. Localized mild inflammation characterized by congestion (edema) and erythema was found in the gastric antrum. Biopsies were taken with a cold forceps for Helicobacter pylori testing. The exam of the duodenum was otherwise normal. Impression: - Z-line irregular, 35 cm from the incisors. - Small hiatal hernia. - Mucosal changes suspicious for gastritis. Biopsied. - Multiple biopsies were obtained at the gastroesophageal junction. - The examination was otherwise normal. Recommendation: - Patient has a contact number available for emergencies. The signs and symptoms of potential delayed complications were discussed with the patient. Return to normal activities tomorrow. Written discharge instructions were provided to the patient. - High fiber diet. - Discharge patient to home. - Follow an antireflux regimen. - Continue present medications. - Await pathology results. - Telephone GI clinic for pathology results in 1 week. - Return to referring physician. - The findings and recommendations were discussed with the patient. Shiva Cruz MD Shiva Cruz MD 09/03/2019 9:33:46 AM Electronically signed by Shiva Cruz MD Number of Addenda: 0 Note Initiated On: 09/03/2019 9:17 AM Estimated Blood Loss: Estimated blood loss: none.
--- NOTE | 2019-09-03 09:49 | ROOR ---
Patient Name: Leilani Johns Procedure Date: 09/03/2019 9:17 AM Date of : 1965 Age: 54 Room: [facility] Gender: Female Note Status: Finalized Procedure: Total Colonoscopy to Cecum Indications: Screening in patient at increased risk: Colorectal cancer in mother 60 or older, Incidental - Rectal bleeding, Incidental - Change in bowel habits Providers: Shiva Cruz MD Referring MD: Beata Junior DO Requesting Provider: Medicines: Monitored Anesthesia Care Complications: No immediate complications. Procedure: Pre-Anesthesia Assessment: - The heart rate, respiratory rate, oxygen saturations, blood pressure, adequacy of pulmonary ventilation, and response to care were monitored throughout the procedure. The Colonoscope was introduced through the anus and advanced to the cecum, identified by appendiceal orifice and ileocecal valve. The colonoscopy was performed without difficulty. The patient tolerated the procedure well. The quality of the bowel preparation was excellent. Findings: The perianal and digital rectal examinations were normal. Non-bleeding internal hemorrhoids were found during retroflexion. The hemorrhoids were small and Grade I (internal hemorrhoids that do not prolapse). Multiple small and large-mouthed diverticula were found in the recto-sigmoid colon and sigmoid colon. The exam was otherwise without abnormality on direct and retroflexion views. Impression: - Non-bleeding internal hemorrhoids. - Diverticulosis in the recto-sigmoid colon and in the sigmoid colon. - The examination was otherwise normal on direct and retroflexion views. - No specimens collected. - The exam was otherwise normal to the cecum. Recommendation: - Patient has a contact number available for emergencies. The signs and symptoms of potential delayed complications were discussed with the patient. Return to normal activities tomorrow. Written discharge instructions were provided to the patient. - High fiber diet. - Discharge patient to home. - Continue present medications. - Repeat colonoscopy in 5 years for screening purposes. - Return to referring physician. - The findings and recommendations were discussed with the patient's family. Shiva Cruz MD Shiva Cruz MD 09/03/2019 9:48:31 AM Electronically signed by Shiva Cruz MD Number of Addenda: 0 Note Initiated On: 09/03/2019 9:17 AM Estimated Blood Loss: Estimated blood loss: none.
[2019-09-03 10:27] VITALS: BP 115/76
== END 2019-09-03 10:29 | disposition home or self-care (01) ==
LOC: M OPP 08:00
PROVIDERS: ATTEND Internal Medicine Gastroenterology
DX: Z12.11 Encounter for screening for malignant neoplasm of colon (principal); Z80.0 Family history of malignant neoplasm of digestive organs; K64.0 First degree hemorrhoids; K57.30 Diverticulosis of large intestine without perforation or abscess without bleeding; K22.8 Other specified diseases of esophagus; K44.9 Diaphragmatic hernia without obstruction or gangrene; K31.89 Other diseases of stomach and duodenum; R12 Heartburn; I10 Essential (primary) hypertension; F17.210 Nicotine dependence, cigarettes, uncomplicated; Z79.82 Long term (current) use of aspirin; Z79.899 Other long term (current) drug therapy
CPT/HCPCS: 43239; 45378; 88305; J2370; J3010

== ENCOUNTER → 2020-01-05 | Outpatient (REF) | payer BC ==
[~2020-01-05] MED LIST changes: -LIDOCAINE 2% 100MG/5ML SDV (FOR ANES.) As Ordered ONE; -NS 1,000 ML IV ONE; -propofoL 500 MG/50 ML VIAL As Ordered ONE
[2020-01-05 15:56] LABS: PERCENT SATURATION 25.7 % (13.2-45.0)
== END ==
LOC: M LAB REF 09:02
PROVIDERS: ATTEND Internal Medicine
DX: D50.9 Iron deficiency anemia, unspecified (principal)

== ENCOUNTER → 2020-07-06 | Outpatient (REF) | payer BC ==
[2020-07-06 13:27] LABS: PERCENT SATURATION 23.6 % (13.2-45.0)
== END ==
LOC: M LAB REF 12:11
PROVIDERS: ATTEND Internal Medicine
DX: D50.9 Iron deficiency anemia, unspecified (principal)

== ENCOUNTER → 2020-07-23 | Outpatient (CLI) | payer BC ==
--- NOTE | 2020-07-23 12:26 | REPMRS ---
Patient History The patient states she has not had a clinical breast exam in over a year. Patient is postmenopausal. Family history of colorectal cancer at age 68 in mother. Lumpectomy of the right breast, 1993. Took hormonal contraceptives for 1 year. Digital Woman Screen Mammo: July 23, 2020 - Exam #: [id number] Bilateral CC and MLO view(s) were taken. Technologist: Christi Delgado, Technologist Prior study comparison: July 17, 2013, bilateral bilat screen digital mammo, performed at [facility] July 27, 2011, bilateral bilat screen digital mammo, performed at [facility] ([facility]). September 10, 2008, bilateral digital mammo screening bilat, performed at [facility]. FINDINGS: There are scattered fibroglandular densities. The Volpara volumetric breast density category is:B. There has been no change in the appearance of the mammogram from the prior studies. There is a mild amount of scattered fibroglandular density which is fairly symmetric. There is no interval development of dominant mass, architectural distortion, or grouped microcalcification suggestive of malignancy. 3-D tomosynthesis shows no additional findings. Assessment: BI-RADS/ACR category 1 mammogram. Negative Mammogram. Recommendation Routine screening mammogram of both breasts in 1 year (for women over age 40). This patient's [facility] Lifetime Breast Cancer Risk is estimated at 6.3 %. This mammogram was interpreted with the aid of an FDA-approved computer-aided dectection system. Electronically Signed By: Michael Levin MD 07/23/20 [id number]
== END ==
LOC: M WHC 11:12
PROVIDERS: ATTEND Internal Medicine
DX: Z12.31 Encounter for screening mammogram for malignant neoplasm of breast (principal); Z80.3 Family history of malignant neoplasm of breast; Z86.018 Personal history of other benign neoplasm